=== PATIENT | male | born 1940 | race American Indian/Alaskan Native ===

== ENCOUNTER 2018-12-16 07:22 | Day surgery (SDC) | payer MEDICARE ==
[~2018-12-16 07:22] MED LIST: NACL 0.9% 1000 ML 1,000 ML IV SCH
[2018-12-16] MEDS ORDERED: WATER FOR IRRIG STERILE IR ONE (08:29)
--- NOTE | 2018-12-16 08:43 | Anesthesia Day of Surgery ---
Anesthesia Day of Surgery - Day of Surgery Patient H&P Reviewed: Yes Patient is NPO: Yes Cardiac Clearance: No Pulmonary Clearance: No Oren's Test: N/A
--- NOTE | 2018-12-16 08:47 | Anesthesia Consultation ---
Anesthesia Consult and Med Hx Date of service: 12/16/18 - Airway ROM Head & Neck: Adequate Mental/Hyoid Distance: Adequate Mallampati Class: Class II Intubation Access Assessment: Probably Good - Pulmonary Exam CTA: Yes - Cardiac Exam Cardiac Exam: RRR - Pre-Operative Health Status ASA Pre-Surgery Classification: ASA4 Proposed Anesthetic Plan: MAC - Cardiovascular System Hx Hypertension: Yes (H/O Cardiomegaly, CHF) - Endocrine Hx Cirrhosis: Yes (Ascites) Hx Liver Disease: Yes Hx Non-Insulin Dependent Diabetes: Yes - Hematic Hx Anemia: Yes
[2018-12-16] MEDS ORDERED: DIPRIVAN 10 MG/ML IV ONE (08:59)
--- NOTE | 2018-12-16 09:34 | Operative Report ---
Operative Report Operative Report: Esophagogastroduodenoscopy Procedure Note Date of procedure: 12/16/2018 Endoscopist: Bernardo Nielsen Pre-op diagnosis: Cirrhosis, Abdominal pain Post-op diagnosis: Anesthesia: MAC Complications: No immediate complications Estimated blood loss: None Procedure: After consent was obtained, the patient was placed in the left lateral decubitus position. The fujinon endoscope was inserted into the patient's mouth under direct vision, and advanced into the 2nd portion of the duodenum without difficulty. The patient tolerated the procedure well. The views of the mucosa were good. Patient's vital signs were monitored continuously throughout the procedure. Findings: The esophagus appeared normal. No signs of varices. The stomach appeared normal. The duodenum appeared normal. Impression: 1. Normal upper endoscopy Recommendations: -follow-up in GI clinic as scheduled
[2018-12-16 10:08] VITALS: BP 120/65
== END 2018-12-16 07:23 | disposition home or self-care (01) ==
LOC: GIO 07:22
PROVIDERS: ATTEND Internal Medicine Gastroenterology
DX: K74.69 Other cirrhosis of liver (principal); R10.11 Right upper quadrant pain; I11.0 Hypertensive heart disease with heart failure; I50.9 Heart failure, unspecified; E78.00 Pure hypercholesterolemia, unspecified; E11.9 Type 2 diabetes mellitus without complications; Z79.899 Other long term (current) drug therapy; Z98.890 Other specified postprocedural states; Z86.2 Personal history of diseases of the blood and blood-forming organs and certain disorders involving the immune mechanism
CPT/HCPCS: 43235; 82962; J2704; J7030